=== PATIENT | male | born 1950 | race Caucasian/White ===

== ENCOUNTER 2016-04-25 10:27 | Outpatient (CLI) | payer MEDICARE ==
[2016-04-25 11:12] LABS: ALBUMIN 4.4 g/dL (3.4-5.0); BILIRUBIN,DIRECT 0.1 mg/dL (0.0-0.2); BILIRUBIN,TOTAL 0.4 mg/dL (0.2-1.0); INDIRECT BILIRUBIN 0.3 mg/dL (0.0-1.1)
== END 2016-04-25 23:59 | disposition home or self-care (01) ==
LOC: LAB 10:27
DX: I10 Essential (primary) hypertension (principal)
CPT/HCPCS: 36415; 80076-TC